=== PATIENT | male | born 1975 | race African-American/Black ===

== ENCOUNTER 2022-10-17 14:36 | Inpatient (IN) | payer OTHER, SELFPAY ==
[~2022-10-17 14:36] MED LIST: Iopamidol-370 76% 500 ML 1 ML ONE
[2022-10-17 14:54] LABS: #Basophils 0.1 thou/uL (0.0-0.2); #Eosinphils 0.6 thou/uL (0.0-0.7); #Lymphocytes 4.8 thou/uL (1.20-3.40); #Monocytes 0.7 thou/uL (0.11-0.59); #Neutrophils 5.9 thou/uL (1.40-6.50); %Basophils 0.5 % (0.0-1.0); %Eosinophils 5.3 % (0.0-10.0); %Lymphocytes 39.6 % (21.0-51.0); %Monocytes 6.1 % (0.0-10.0); %Neutrophils 48.5 % (42.0-75.0); Hemoglobin 15.5 g/dL (14.0-18.0); Mean Corpuscular HGB CONC 33.7 g/dL (32.0-36.0); Mean Corpuscular Volume 91.8 fl (78.0-98.0); Mean Platelet Volume 9.5 fL (7.4-10.4); Platelet Count 141 10x3/uL (130-400); RBC Distribution Width 12.4 % (11.5-14.5); White Blood Cell (WBC) Count 12.1 10x3/uL (4.8-10.8)
[2022-10-17 15:15] LABS: ALT (SGPT) 26 U/L (8-55); AST (SGOT) 30 U/L (5-34); Albumin 4.1 g/dL (3.5-5.0); Alkaline Phosphatase 66 U/L (40-110); Anion Gap 14 mmol/L (10-20); BUN (Urea Nitrogen) 13 mg/dL (8.9-20.6); Bilirubin, Total 0.5 mg/dL (0.2-1.2); Calc. Creatinine Clearance 0 mL/min (70-130); Calcium 9.1 mg/dL (7.8-10.44); Carbon Dioxide 22 mmol/L (22-29); Chloride 107 mmol/L (98-107); Estimated GFR 79; Globulin 2.9 g/dL (2.4-3.5); Glucose 127 mg/dL (70-105); Lipase 37 U/L (8-78); Magnesium 1.8 mg/dL (1.6-2.6); Potassium 3.5 mmol/L (3.5-5.1); Sodium 139 mmol/L (136-145)
[2022-10-17] MEDS ORDERED: Lidocaine 1% w/Epinephrine 1:100K 20 ML VIAL ONE (15:16)
[2022-10-17] MEDS ORDERED: Boostrix 0.5 ML (Tdap) VIAL (>/=7 yrs of age) ONE (16:13)
[2022-10-17] MEDS ORDERED: Ondansetron PF 4 MG/2 ML Vial ONE (16:13)
[2022-10-17 16:25] LABS: Magnesium 1.8 mg/dL (1.6-2.6); Phosphorus 2.3 mg/dL (2.3-4.7)
[2022-10-17] MEDS ORDERED: Fentanyl 100 MCG/2 ML VIAL ONE (16:26)
[2022-10-17] MEDS ORDERED: Magnesium 2 GM/50 ML(in water) 2 GM in Premix Bag 1 BAG IVPB SCH (16:30)
[2022-10-17] MEDS ORDERED: Insulin Regular 300 UNITS/3 ML VIAL SC PRN (16:30)
[2022-10-17] MEDS ORDERED: Potassium Phosphate 15 MMOL in Sodium Chloride 0.9% 250 ML 250 ML IVPB SCH (16:30)
[2022-10-17] MEDS ORDERED: Ondansetron PF 4 MG/2 ML Vial IVP PRN (16:30)
[2022-10-17] MEDS ORDERED: Sodium Chloride 0.9% 1,000 ML IV SCH (16:30)
[2022-10-17] MEDS ORDERED: Dextrose 50% Abboject 50 ML SYRINGE SLOW IVP PRN (16:30)
[2022-10-17] MEDS ORDERED: Dextrose 5% in Water 1,000 ML IV PRN (16:30)
[2022-10-17 16:32] LABS: PTT 26.6 sec (22.9-36.1); Prothrombin Time 13.3 sec (12.0-14.7)
[2022-10-17] MEDS: Mometasone 200 MCG/Formoterol 5 MCG 120 PUFF INHALER INH SCH (17:36)
[2022-10-17] MEDS: Ipratropium/Albuterol 3 ML NEB NEB SCH (17:37)
[2022-10-17] MEDS: Sodium Chloride 0.9% 1,000 ML IV SCH (18:48)
[2022-10-17] MEDS: Morphine 4 MG/ML VIAL SLOW IVP PRN (18:48)
[2022-10-17] MEDS: Acetaminophen 500 MG TAB PO SCH (18:48)
[2022-10-17 18:49] LABS: SARS-CoV-2 NAA Rapid Test Not Detected (NotDetected)
[2022-10-17 19:49] VITALS: BMI 37.8
[2022-10-17] MEDS: Famotidine/PF 20 mg/2ml Vial SLOW IVP SCH (21:42)
[2022-10-17] MEDS: Bacitracin 1 PK TOP SCH (21:42)
[2022-10-17] MEDS: Senokot S 8.6-50 MG TAB PO SCH (21:43)
[2022-10-17] MEDS: Cyclobenzaprine 10 MG TAB PO PRN (21:43)
[2022-10-17] MEDS: Ipratropium/Albuterol 3 ML NEB NEB PRN (22:27)
[2022-10-18] MEDS: Acetaminophen 500 MG TAB PO SCH ×5 (00:40→23:46)
[2022-10-18] MEDS: Sodium Chloride 0.9% 1,000 ML IV SCH ×2 (00:42→08:59)
[2022-10-18 03:38] LABS: #Eosinphils 0.1 thou/uL (0.0-0.7); #Lymphocytes 2.2 thou/uL (1.20-3.40); #Monocytes 0.9 thou/uL (0.11-0.59); #Neutrophils 8.1 thou/uL (1.40-6.50); %Eosinophils 0.6 % (0.0-10.0); %Lymphocytes 19.3 % (21.0-51.0); Hemoglobin 14.3 g/dL (14.0-18.0); Mean Corpuscular HGB CONC 33.2 g/dL (32.0-36.0); Mean Corpuscular Hemoglobin 30.6 pg (27.0-31.0); Mean Corpuscular Volume 92.3 fl (78.0-98.0); Platelet Count 131 10x3/uL (130-400); RBC Distribution Width 12.4 % (11.5-14.5); Red Blood Cell (RBC) Count 4.66 mill/uL (4.70-6.10); White Blood Cell (WBC) Count 11.3 10x3/uL (4.8-10.8)
[2022-10-18 03:45] LABS: Anion Gap 13 mmol/L (10-20); BUN (Urea Nitrogen) 11 mg/dL (8.9-20.6); Calc. Creatinine Clearance 167 mL/min (70-130); Calcium 8.5 mg/dL (7.8-10.44); Carbon Dioxide 22 mmol/L (22-29); Chloride 108 mmol/L (98-107); Estimated GFR 95; Glucose 90 mg/dL (70-105); Magnesium 2.1 mg/dL (1.6-2.6); Phosphorus 3.7 mg/dL (2.3-4.7); Potassium 4.7 mmol/L (3.5-5.1); Sodium 138 mmol/L (136-145)
[2022-10-18 04:39] LABS: Amphetamine Not Detected (NotDetected); Barbiturates Screen Not Detected (NotDetected); Benzodiazepine Screen Not Detected (NotDetected); Cocaine Metabolite Screen Not Detected (NotDetected); Methadone Not Detected (NotDetected); Methamphetamine Not Detected (NotDetected); Opiate Screen Detected (NotDetected); Oxycodone Screen Not Detected (NotDetected); Phencyclidine (PCP) Not Detected (NotDetected); THC/Cannabinoid Screen Not Detected (NotDetected); Tricyclic Screen Not Detected (NotDetected)
[2022-10-18] MEDS: Ipratropium/Albuterol 3 ML NEB NEB SCH ×3 (07:08→18:09)
[2022-10-18] MEDS: Mometasone 200 MCG/Formoterol 5 MCG 120 PUFF INHALER INH SCH ×2 (07:08→18:20)
[2022-10-18] MEDS: Polyethylene Glycol 3350 17 GM Packet PO SCH (08:56)
[2022-10-18] MEDS: Bacitracin 1 PK TOP SCH ×3 (08:56→20:11)
[2022-10-18] MEDS: Senokot S 8.6-50 MG TAB PO SCH ×2 (08:56→20:11)
[2022-10-18] MEDS: Famotidine/PF 20 mg/2ml Vial SLOW IVP SCH ×2 (08:56→20:10)
[2022-10-18] MEDS: Silver Sulfadiazine 50 GM JAR TP SCH (10:04)
[2022-10-18] MEDS: Cyclobenzaprine 10 MG TAB PO PRN (10:27)
[2022-10-18] MEDS: hydrALAZINE 20 MG/ML VIAL SLOW IVP PRN (12:16)
[2022-10-18] MEDS: Morphine 4 MG/ML VIAL SLOW IVP PRN ×2 (15:37→20:08)
[2022-10-19] MEDS: Ipratropium/Albuterol 3 ML NEB NEB SCH ×3 (00:01→18:33)
[2022-10-19] MEDS: Cyclobenzaprine 10 MG TAB PO PRN ×3 (04:41→23:47)
[2022-10-19] MEDS: hydrALAZINE 20 MG/ML VIAL SLOW IVP PRN (04:41)
[2022-10-19] MEDS: Mometasone 200 MCG/Formoterol 5 MCG 120 PUFF INHALER INH SCH ×2 (05:16→18:39)
[2022-10-19] MEDS: Ipratropium/Albuterol 3 ML NEB NEB PRN ×2 (05:16→23:55)
[2022-10-19] MEDS: Acetaminophen 500 MG TAB PO SCH ×4 (05:37→23:47)
[2022-10-19] MEDS: Famotidine/PF 20 mg/2ml Vial SLOW IVP SCH ×2 (08:43→20:42)
[2022-10-19] MEDS: Senokot S 8.6-50 MG TAB PO SCH ×2 (08:43→20:43)
[2022-10-19] MEDS: Polyethylene Glycol 3350 17 GM Packet PO SCH (08:44)
[2022-10-19] MEDS: Bacitracin 1 PK TOP SCH ×2 (08:44→20:43)
[2022-10-19] MEDS: Silver Sulfadiazine 50 GM JAR TP SCH (08:51)
[2022-10-19] MEDS ORDERED: Amlodipine 5 MG TAB PO SCH (09:00)
[2022-10-19] MEDS ORDERED: Scopolamine 1.5 mg/72 hour Patch TD SCH (10:30)
[2022-10-19] MEDS ORDERED: Lidocaine 5% Patch TD SCH (12:45)
[2022-10-19] MEDS ORDERED: Transdermal Patch Removal TOP SCH (21:00)
[2022-10-20] MEDS: Acetaminophen 500 MG TAB PO SCH (05:44)
[2022-10-20] MEDS: Ipratropium/Albuterol 3 ML NEB NEB SCH ×2 (08:09→14:58)
[2022-10-20] MEDS: Mometasone 200 MCG/Formoterol 5 MCG 120 PUFF INHALER INH SCH (08:10)
[2022-10-20] MEDS ORDERED: Lidocaine 5% Patch TD SCH (09:00)
[2022-10-20] MEDS: Bacitracin 1 PK TOP SCH (09:02)
[2022-10-20] MEDS: Senokot S 8.6-50 MG TAB PO SCH (09:02)
[2022-10-20] MEDS: Silver Sulfadiazine 50 GM JAR TP SCH (09:02)
[2022-10-20] MEDS: Polyethylene Glycol 3350 17 GM Packet PO SCH (09:04)
[2022-10-20] MEDS: hydrALAZINE 20 MG/ML VIAL SLOW IVP PRN (11:11)
[2022-10-20] MEDS ORDERED: Acetaminophen 325 MG TAB PO SCH (12:00)
[2022-10-20] MEDS ORDERED: Acetaminophen/Codeine 30-300mg Tablet PO SCH (12:00)
[2022-10-20 12:16] VITALS: TEMP 97.5
[2022-10-20] MEDS ORDERED: Amlodipine 10 MG TAB PO SCH (15:15)
[2022-10-20 15:41] VITALS: BP 165/97
== END 2022-10-20 16:20 | disposition home or self-care (01) | DRG 86 ==
LOC: ERS 14:36 → CCU 15:37 → SURG B 10-18 11:20
PROVIDERS: ADMIT Surgery; ATTEND Surgery
PROC: 0HQ0XZZ Repair Scalp Skin, External Approach (ICD-10-PCS; principal; 2022-10-17)
DX: S06.6X0A Traumatic subarachnoid hemorrhage without loss of consciousness, initial encounter (principal); S32.029A Unspecified fracture of second lumbar vertebra, initial encounter for closed fracture; S32.039A Unspecified fracture of third lumbar vertebra, initial encounter for closed fracture; Z20.822 Contact with and (suspected) exposure to COVID-19; S01.01XA Laceration without foreign body of scalp, initial encounter; J45.909 Unspecified asthma, uncomplicated; F17.210 Nicotine dependence, cigarettes, uncomplicated; R40.2412 Glasgow coma scale score 13-15, at arrival to emergency department; Z98.890 Other specified postprocedural states; Z79.899 Other long term (current) drug therapy; V28.09XA Other motorcycle driver injured in noncollision transport accident in nontraffic accident, initial encounter; Y92.410 Unspecified street and highway as the place of occurrence of the external cause
CPT/HCPCS: 36415; 36416; 70450; 71045; 71260; 72125; 74177; 80048; 80053; 80306; 80307; 83690; 83735; 84100; 85025; 85610; 85730; 90715; 94640; 97139; G0390; J0360; J2270; J2405; J3010; J3475; J7050; J7620; Q9967; S0028; U0002